=== PATIENT | female | born 1990 | race Caucasian/White ===

== ENCOUNTER 2022-03-14 20:55 | Emergency (ER) | payer OTHER, SELFPAY ==
[2022-03-14 20:57] VITALS: BP 140/91; PULSE 123; RESP 16; RESP 18; TEMP 37.1; O2SAT 97; BMI 34.0
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
[2022-03-14 21:54] VITALS: BP 140/71; PULSE 98; RESP 16; TEMP 37.1; O2SAT 98
== END 2022-03-14 22:19 | disposition home or self-care (01) ==
PROVIDERS: Emergency Provider Emergency Medicine
DX: S41.112A Laceration without foreign body of left upper arm, initial encounter (principal); V86.65XA Passenger of 3- or 4- wheeled all-terrain vehicle (ATV) injured in nontraffic accident, initial encounter; Z23 Encounter for immunization
CPT/HCPCS: 12002; 90471; 90715; 99282